=== PATIENT | male | born 1970 | race Caucasian/White ===

== ENCOUNTER 2016-11-15 11:01 | Outpatient (CLI) | payer OTHER | END 2016-11-15 11:02 | disposition home or self-care (01) | DRG 558 | LOC: CONVCARE 11:01 | PROVIDERS: ATTEND Orthopaedic Surgery | DX: M77.11 Lateral epicondylitis, right elbow (principal); M77.8 Other enthesopathies, not elsewhere classified | CPT/HCPCS: 73070 ==

== ENCOUNTER 2017-06-27 14:34 | Outpatient (CLI) | payer OTHER | END 2017-06-27 14:35 | disposition home or self-care (01) | DRG 556 | LOC: CONVCARE 14:34 | PROVIDERS: ATTEND Orthopaedic Surgery | DX: M25.521 Pain in right elbow (principal) | CPT/HCPCS: 73070 ==